=== PATIENT | female | born 1975 | race Caucasian/White ===

== ENCOUNTER → 2025-05-29 07:01 | Outpatient (CLI) | payer OTHER, SELFPAY ==
--- NOTE | 2025-05-29 08:18 | DI.CT.S_ITS ---
PROCEDURE: CT CHEST ABD PEL W CON INDICATIONS: Malignant neoplasm of left breast TECHNIQUE: After the administration of intravenous contrast, 5 mm thick sections acquired from the lung apices to the symphysis. 5 mm coronal and sagittal reformats were performed, with additional 7 mm MIP reformats through the lungs. For radiation dose reduction, the following was used: automated exposure control, adjustment of mA and/or kV according to patient size. COMPARISON: None. FINDINGS: Image quality: Excellent. CHEST: Lower Neck: No enlarged lymph nodes. Thyroid: No thyroid nodules which require sonographic follow up, per consensus guidelines. Axillae: Left axillary lymph nodes at the upper limits of normal measuring 10 mm including lymph node posterior to the pectoralis minus muscle. Chest Wall: Left lateral breast mass with biopsy clip in place. Possible additional breast lesion more inferiorly (2/61). Lungs and Pleura: No pneumothorax or pleural effusions. No consolidation or suspicious nodules. Heart: Heart size is normal. No pericardial effusion. Thoracic Vessels: The aorta and pulmonary arteries demonstrate normal size. Mediastinum and Ro: No enlarged lymph nodes. Esophagus: No wall thickening. No hiatal hernia. ABDOMEN: Liver: No solid mass. Gallbladder: No radiopaque gallstones or wall thickening. Biliary ducts: No biliary dilation. Pancreas: No ductal dilation. Spleen: Size is within normal limits. Adrenal Glands: No adrenal nodules. Kidneys and Ureters: No hydronephrosis. No solid mass. No complex renal cystic lesion which requires follow up. Stomach and Bowel: Normal colonic caliber, without significant wall thickening. Prior appendectomy. Peritoneum: No abnormal intraperitoneal fluid. No free air. Ventral Wall: No significant ventral hernia. Abdominal Nodes: No retroperitoneal or mesenteric adenopathy by size criteria. Vessels: Aorta and inferior vena cava are normal in size. PELVIS: Pelvic Organs: Rim enhancing left ovarian cyst measuring 2 cm, possibly a corpus luteal cyst.. Bladder: No bladder wall thickening, accounting for underdistention. Pelvic Nodes: No enlarged lymph nodes. Miscellaneous: No inguinal hernias are seen. Bones: No aggressive osseous abnormality. Mild degenerative changes of the spine. IMPRESSION: 1. Left lateral breast mass with biopsy clip in place. Possible additional breast lesion more inferior to this, correlate with dedicated mammogram and ultrasound. 2. Left axillary lymph nodes measuring up to 10 mm including a lymph node posterior to the pectoralis minus muscle. Correlate with axillary ultrasound/biopsy results if performed. 3. Otherwise, no findings concerning for distant metastatic disease. Approved by: Poncho Farrell M.D. on 05/29/2025 at 13:50
== END ==
PROVIDERS: Referring Provider Internal Medicine Medical Oncology; Visit Provider Internal Medicine Medical Oncology
DX: C50.412 Malignant neoplasm of upper-outer quadrant of left female breast (principal); Z17.0 Estrogen receptor positive status [ER+]
CPT/HCPCS: 71260; 74177; Q9967

== ENCOUNTER → 2025-05-31 11:02 | Outpatient (CLI) | payer OTHER, SELFPAY ==
--- NOTE | 2025-05-31 11:04 | DI.NM.S_ITS ---
PROCEDURE: NM BONE SCAN WHOLE BODY RADIOPHARMACEUTICAL: 20 mCi Tc-99m MDP IV. INDICATIONS: cancer TECHNIQUE: Delayed whole-body scintigrams were obtained approximately 3-4 hours after intravenous injection of radiotracer. Anterior and posterior views were acquired from vertex to feet. Additional left and right oblique views of the ribs were obtained. COMPARISON: [facility], CT, CT CHEST ABD PEL W CON, 05/29/2025, 8:11. FINDINGS: Physiologic activity noted in the kidneys, bladder and soft tissues. Radiotracer activity in the left antecubital fossa probably represents activity following extravasation of radiotracer. Specifically, no concerning focal uptake suspicious for osseous metastases. IMPRESSION: No scintigraphic findings concerning for osseous metastases. Dictated by: Ca Carmichael M.D. on 06/01/2025 at 13:29 Approved by: Ca Carmichael M.D. on 06/01/2025 at 13:34
== END ==
PROVIDERS: PCP Physician Assistant; Referring Provider Physician Assistant; Visit Provider Internal Medicine Medical Oncology
DX: C50.412 Malignant neoplasm of upper-outer quadrant of left female breast (principal); Z17.0 Estrogen receptor positive status [ER+]
CPT/HCPCS: 78306; A9503